=== PATIENT | male | born 1940 | race Caucasian/White ===

== ENCOUNTER 2022-09-03 19:05 | Emergency (ER) | payer MEDICARE, BC ==
[~2022-09-03] VITALS: Ht 162.6 cm; Wt 68.0 kg
[2022-09-03] MEDS ORDERED: PROTONIX40 M1 PO (19:29)
[2022-09-03] MEDS ORDERED: XTANDI80 MG PO (19:29)
[2022-09-03] MEDS ORDERED: ADULT LOW DOSE81 MG PO (19:31)
[2022-09-03] MEDS ORDERED: CALCIUM 600+D31 EACH PO (19:31)
[2022-09-03] MEDS ORDERED: EFFEXOR XR37.5 MG PO (19:31)
[2022-09-03] MEDS ORDERED: ONDANSETRON ODT8 MG PO (21:51)
[2022-09-03 22:16] VITALS: BP 170/77
== END 2022-09-03 22:17 | disposition home or self-care (01) ==
LOC: ED 19:05
DX: R11.2 Nausea with vomiting, unspecified (principal); Z88.5 Allergy status to narcotic agent; Z88.8 Allergy status to other drugs, medicaments and biological substances; Z79.899 Other long term (current) drug therapy; Z79.82 Long term (current) use of aspirin
CPT/HCPCS: 36415; 70450; 74177; 80053; 83735; 85025; 99284 25; A9270; J2405; Q9967